=== PATIENT | female | born 1980 | race Caucasian/White ===

== ENCOUNTER → 2016-03-10 | Outpatient (CLI) | payer OTHER ==
[~2016-03-10] MED LIST: IBUP-232 PO; OXYC1TAB63 PO; PREN0.01 PO
[2016-03-10 13:23] LABS: HEMATOCRIT 30.5 % (35.0-46.0); REVIEW FLAG FINAL
== END ==
LOC: CLAB 11:47
PROVIDERS: ATTEND Obstetrics & Gynecology
DX: Z34.90 Encounter for supervision of normal pregnancy, unspecified, unspecified trimester (principal)
CPT/HCPCS: 36415; 82951; 85014; 85018; 86703; 87340

== ENCOUNTER 2016-05-18 05:27 | Inpatient (IN) | payer OTHER ==
[2016-05-18] VITALS (8 sets, daily range): BP systolic 101–124; BP diastolic 59–81; PULSE 68–101; RESP 16–20; TEMP 97.4–97.8; O2SAT 97–99
[~2016-05-18 05:27] MED LIST changes: -IBUP-232 PO; -OXYC1TAB63 PO
--- NOTE | 2016-05-18 06:39 | HHI.HP ---
HPI Chief Complaint Pain Date Seen: May 18, 2016 Travel History International Travel<30 Days: No Contact w/Intl Traveler<30Days: No Known Affected Area: No History of Present Illness HPI This patient is 35-year-old white female L0 at 38 weeks who presents with regular contractions with pain, no bleeding or ruptured membranes, positive the mucous plug passage area patient to followed by Dr. Fajardo the [facility] and she has a Morgan cerclage in due to incompetent cervix. The plan has been to have a planned in a week and leave the cerclage in case she wanted have future babies stitch already been placed. The heart rate tracing is reactive and she is rickey every 2-3 minutes Para: 1 : 3 History Past Medical History Narrative Medical Patient has history of a thyroid nodule, PCO S Obstetric History Obstetric History Patient had a loss at 22 weeks due to incompetent cervix, and the first trimester loss the yr after that. Past Surgical History Narrative Surgical Patient had a Morgan cerclage placed double stitch at 14 weeks Social History Alcohol Use: No Tobacco Use: No Substance Abuse: No Allergies-Medications (Allergen,Severity, Reaction): Coded Allergies: No Known Allergies (Unverified , 12/01/15) Home Meds Reported Medications Multivit/Min/Fol Ac/Iron/Pren ( Vit ( Plus)) Tab1 Tab PO DAILY 12/03/15 Review of Systems General / Constitutional: No: Fever, Weight Gain, Chills, Other Eyes: No: Diploplia, Blurred Vision, Visual changes, Pain, Photophobia HENT: No: Headaches, Vertigo, Lightheadedness Cardiovascular: No: Irregular Rhythm, Chest Pain or Discomfort, Palpitations, Tachycardia, Syncope, Varicosities, Edema, Cyanosis Respiratory: No: Cough, Short of Breath, Other Gastrointestinal: Abdominal Pain, No: Nausea, Vomiting, Diarrhea Genitourinary: No: Decreased Urinary Output, Oliguria Musculoskeletal: No: Limited ROM, Weakness, Cramping, Edema, Pain Skin: No Rash, No Itching, No Dryness, No Lumps, No Change in Pigmentation, No Change in Nails, No Alopecia, No Lesions Neurologic: No: Weakness, Dizziness, Syncope, Focal Abnormalities, Coordination Problem, Headache, Slurred Speech, Seizures Psychiatric: No: Depression, Suicidal Ideations, Homicidal Ideation Endocrine: No: Heat Intolerance, Cold Intolerance, Polydipsia, Polyuria, Other Physical Exam Narrative GENERAL: Well-nourished, well-developed patient. SKIN: Warm and dry. HEAD: Normocephalic and atraumatic. EYES: No scleral icterus. No injection or drainage. ENT: No nasal drainage noted. Mucous membranes pink. Airway patent. NECK: Supple, trachea midline. No JVD. CARDIOVASCULAR: Regular rate and rhythm without murmurs, gallops, or rubs. RESPIRATORY: Breath sounds equal bilaterally. No accessory muscle use. BREASTS: Bilateral exam showed no masses , no retractions, no nipple discharge. ABDOMEN/GI: Abdomen soft, non-tender, bowel sounds present, no rebound, no guarding Gravid to [-38] weeks size Fundal Height: [-38] GENITOURINARY: External Genitalia: intact and normal in appearance BUS glands: [-] Cervix: [-] Morgan cerclage palpable and appears intact, however the cervix does palpate to be effacing somewhat Dilatation: [Closed barely fingertip-] Effacement: [-] Approximately 50% it's hard to tell with the cerclage in place Station: [-3] Presentation: [-vtx] Membranes: [intact ] Uterine Contractions: [2- 3 min-] FHT's: Category: [-1] Baseline: [-144] Reactive: [yes-] Variability: [mod-] Decels: [none-] EXTREMITIES: No cyanosis or edema. BACK: Nontender without obvious deformity. No CVA tenderness. NEUROLOGICAL: Awake and alert. Motor and sensory grossly within normal limits. Five out of 5 muscle strength in all muscle groups. Normal speech. Data Data Labs Is GBS positive Assessment/Plan Assessment and Plan This patient is 35-year-old white female L0 at 38 weeks gestation with history of incompetent cervix now with Morgan cerclage in place a planned C- section next week. She presents with regular painful contractions every 2-3 minutes cervix palpates with the stitches intact to see the facing somewhat and only closed to fingertip, heart rate tracing is reactive. Plan to discuss patient with her physician Dr. Fajardo and see if he was just move her C- section up today at this point I think that would be appropriate Kun Berman II, MD May 18, 2016 06:39
[2016-05-18] MEDS ORDERED: LACTATED RINGER'S 1000 ML INJ 1,000 ML IV ONE ×2 (06:47→10:00)
[2016-05-18] MEDS ORDERED: LACTATED RINGER'S 1000 ML INJ 1,000 ML IV SCH ×2 (07:17→15:05)
[2016-05-18 07:39] LABS: AUTOMATED NEUTROPHIL # 14.3 TH/MM3 (1.8-7.7); BASOPHIL # 0.1 TH/MM3 (0-0.2); BASOPHIL % 0.4 % (0.0-2.0); EOSINOPHIL # 0.3 TH/MM3 (0-0.4); EOSINOPHIL % 1.8 % (0.0-4.0); HEMATOCRIT 31.9 % (35.0-46.0); LYMPH % 13.7 % (9.0-44.0); LYMPHOCYTE # 2.5 TH/MM3 (1.0-4.8); MEAN CELL VOLUME 84.5 FL (80.0-100.0); MEAN CORPUSCULAR HGB CONC 31.9 % (32.0-36.0); MONO % 5.3 % (0.0-8.0); NEUT % 78.8 % (16.0-70.0); PLATELET COUNT 374 TH/MM3 (150-450); RED BLOOD COUNT 3.78 MIL/MM3 (4.00-5.30); RED CELL DISTRIBUTION WIDTH 14.7 % (11.6-17.2); WHITE BLOOD COUNT 18.2 TH/MM3 (4.0-11.0)
[2016-05-18 07:43] LABS: HEMO FLAGS AUTO DIFF
[2016-05-18 07:53] LABS: BACTERIA, URINE FEW /hpf; BLOOD, URINE NEG (NEG); COMMENT (UR) CULTURE INDICATED; CULTURE IF INDICATED CULTURE INDICATED; GLUCOSE,URINE NEG (NEG); KETONE, URINE NEG (NEG); MUCUS URINE FEW /lpf (OCC); NITRITE,URINE NEG (NEG); SQUAMOUS EPITHELIAL CELL URINE 9 /hpf (0-5); URINE COLOR YELLOW (YELLW/STRAW)
[2016-05-18] MEDS ORDERED: ceFAZolin 2 GM PREMIX 50 ML IV SCH (08:00)
[2016-05-18 08:18] LABS: ALKALINE PHOSPHATASE 132 U/L (45-117); TOTAL BILIRUBIN ADULT 0.2 MG/DL (0.2-1.0)
[2016-05-18 08:19] LABS: BANDS 11 % (0-6); EOSINOPHILS 2 % (0-4); NEUTROPHIL # MANUAL DIFF 14.7 TH/MM3 (1.8-7.7); POLYS (SEG NEUTROPHILS) 70 % (16-70); WBC DIFF SAMPLE 100
[2016-05-18 08:20] LABS: PLATELET ESTIMATE SMEAR NORMAL (NORMAL); PLATELET MORPHOLOGY NORMAL (NORMAL); SCAN/DIFF FINAL DIFF MANUAL
[2016-05-18] MEDS ORDERED: MORPHINE SULFATE PF 5 MG/10 ML VIAL ONE (08:23)
[2016-05-18] MEDS ORDERED: OXYTOCIN 10 UNIT/ML AMP ONE (08:23)
[2016-05-18] MEDS ORDERED: ONDANSETRON HCL 4 MG/2 ML VIAL ONE (08:23)
[2016-05-18] MEDS ORDERED: CITRIC ACID-SODIUM CITRATE LIQ 30 ML UDC PO SCH (08:30)
[2016-05-18 08:52] LABS: ALT (GPT) 12 U/L (10-53); ANION GAP 10 MEQ/L (5-15); AST (GOT) 16 U/L (15-37); BICARBONATE 22.2 MEQ/L (21.0-32.0); BLOOD UREA NITROGEN 9 MG/DL (7-18); CHLORIDE 106 MEQ/L (98-107); GLOMERULAR FILTRATION RATE 104 ML/MIN (>89); POTASSIUM 4.3 MEQ/L (3.5-5.1); SODIUM (NA) 138 MEQ/L (136-145)
[2016-05-18] MEDS ORDERED: ePHEDrine/NS 25 MG/5 ML SYR IV ONE (10:00)
--- NOTE | 2016-05-18 10:09 | PD.OB.DELI ---
Procedure Note Section Procedure Performed by Ajit Fajardo Procedure: Primary Low Transverse Sec (History of cervical cerclage, intact) Indication for delivery: Other (cervical cerclage intact) Informed consent obtained: For anesthesia, For procedure Confirmed correct: Patient, Procedure, Site, Time-out taken Anesthesia: Spinal Medication prior to procedure: As documented in eMAR Monitoring during procedure: Blood pressure monitoring, improvement nurse, doppler Urinary catheter: Inserted using sterile technique, To dependent drainage Sterile preparation: Duraprep Position: Supine with wedge to right side, Supine with safety belt applied Operative Features Skin Incision: Pfannenstiel Uterine Incision: Low transverse w/knife / scissors Membranes Ruptured: Artificially Presentation: Occiput anterior Delivery of infant: Assisted (vacuum x1 pull) : Female One Minute : 8 Five Minute : 9 Weight: 7# 14oz Status of : Viable Placenta delivered: Intact Medications: Antibiotics, Oxytocin Estimated blood loss: 650 Procedure tolerated: Well Maternal Condition: Stable Condition: Stable Ajit Fajardo MD May 18, 2016 10:09
[2016-05-18] MEDS ORDERED: SODIUM CHLORIDE 0.9% FLUSH 5 ML FLUSH IV PRN (10:15)
[2016-05-18] MEDS ORDERED: ONDANSETRON HCL 4 MG/2 ML VIAL IV PUSH PRN (10:15)
[2016-05-18] MEDS ORDERED: OXYTOCIN 30 UNITS-500ML PREMIX 500 ML IV ONE (10:15)
[2016-05-18] MEDS ORDERED: KETOROLAC TROMETHAMINE 60 MG/2 ML (IM) VIAL IM PRN (10:15)
[2016-05-18] MEDS ORDERED: SIMETHICONE 80 MG CHEWABLE TAB PO PRN (10:15)
[2016-05-18] MEDS ORDERED: ACETAMINOPHEN 1000 MG/100 ML VIAL IV ONE ×2 (10:43→11:00)
[2016-05-18] MEDS ORDERED: OXYTOCIN 30 UNITS-500ML PREMIX 500 ML ONE (10:43)
[2016-05-18] MEDS ORDERED: SODIUM CHLORIDE 0.9% FLUSH 5 ML FLUSH IV SCH (11:00)
[2016-05-18] MEDS: DOCUSATE SODIUM 50 MG/SENNA 8.6 MG TAB PO PRN (16:51)
[2016-05-18] MEDS: IBUPROFEN 600 MG TAB PO PRN (16:51)
[2016-05-18] MEDS: oxyCODONE/ACETAMINOPHEN 5 MG/325 MG TAB PO PRN (16:52)
[2016-05-18] MEDS ORDERED: OXYTOCIN 30 UNITS-500ML PREMIX 500 ML IV PRN (20:15)
--- NOTE | 2016-05-19 07:32 | HHI.OB ---
Subjective Post Operative Day: 1 Remarks POD#1; doing well Objective Vitals/I&O Vital Signs Date Time Temp Pulse Resp B/P Pulse Ox O2 Delivery O2 Flow Rate FiO2 05/18/16 19:53 97.4 68 18 103/64 05/18/16 15:40 97.4 70 17 103/66 05/18/16 11:45 97.8 72 16 101/59 05/18/16 11:00 97.6 05/18/16 10:54 78 20 112/77 97 05/18/16 10:36 87 20 124/81 97 05/18/16 10:24 85 118/74 05/18/16 10:24 20 98 05/18/16 10:15 97.5 101 20 120/75 99 Result Diagram: 05/18/1671905/18/16719 Objective Remarks GENERAL: Well-nourished, well-developed patient. CARDIOVASCULAR: Regular rate and rhythm without murmurs, gallops, or rubs. RESPIRATORY: Breath sounds equal bilaterally. No accessory muscle use. ABDOMEN/GI: Abdomen soft, non-tender, bowel sounds present. Incision: Clean, dry and intact. Fundus: Firm, non-tender at umbilicus. GENITOURINARY: Light to moderate bleeding. EXTREMITIES: No cyanosis or edema, non-tender, without signs of DVT. Medications and IVs Current Medications Medications (Trade) Dose Ordered Sig/Elisa Route Start Time Stop Time Status Last Admin (Lr 1000 ml Inj) 1,000 ml @ 100 mls/hr Q10H IV 05/18/16 15:05 05/19/16 11:04 05/18/16 22:36 (NS Flush) 2 ml BID IV 05/18/16 11:00 (NS Flush) 2 ml UNSCH PRN IV 05/18/16 10:15 (Mylicon Chew) 80 mg QID PRN PO 05/18/16 10:15 (Motrin) 600 mg Q6H PRN PO 05/18/16 10:15 05/18/16 16:51 (Toradol Inj) 30 mg Q6H PRN IM 05/18/16 10:15 05/19/16 10:14 (Percocet 5-325 Mg) 1 tab Q4H PRN PO 05/18/16 10:15 (Percocet 5-325 Mg) 2 tab Q4H PRN PO 05/18/16 10:15 05/18/16 16:52 (Birdie-Colace) 2 tab Q12H PRN PO 05/18/16 10:15 05/18/16 16:51 (M-M-R Ii Inj) 0.5 ml ONCE ONCE SQ 05/19/16 16:00 05/19/16 16:01 (Boostrix Inj) 0.5 ml ONCE ONCE IM 05/19/16 16:00 05/19/16 16:01 (Zofran Inj) 4 mg Q6H PRN IV PUSH 05/18/16 10:15 05/18/16 18:37 Assessment/Plan Assessment and Plan POD#1; Stable Discharge Planning Does not meet criteria Ajit Fajardo MD May 19, 2016 07:31
[2016-05-19] MEDS ORDERED: IBUP-232 PO (07:33)
[2016-05-19] MEDS ORDERED: OXYC1TAB63 PO (07:33)
--- NOTE | 2016-05-19 07:34 | HHI.DS ---
Admission Date May 18, 2016 at 06:47 Admitting Diagnosis Diagnosis: : Primary Reason: Cervical cerlage inplace : Female Brief History This patient is 35-year-old white female L0 at 38 weeks who presents with regular contractions with pain, no bleeding or ruptured membranes, positive the mucous plug passage area patient to followed by Dr. Fajardo the [facility] and she has a Morgan cerclage in due to incompetent cervix. The plan has been to have a planned in a week and leave the cerclage in case she wanted have future babies stitch already been placed. The heart rate tracing is reactive and she is rickey every 2-3 minutes Pt Condition on Discharge: Good Discharge Disposition: Discharge Home Discharge Instructions Diet Instructions: As Tolerated, No Restrictions Activities You Can Perform: Shower Only-No Bath Activities to Avoid: Prolonged Standing, Strenuous Activity, Driving, Sexual Activity Ajit Fajardo MD May 19, 2016 07:34
[2016-05-19 08:00] VITALS: BP 127/81; PULSE 74; RESP 18; TEMP 98.7
--- NOTE | 2016-05-19 09:15 | MP ---
cc: AJIT ROBBINS DATE OF SURGERY 05/18/2016 PREOPERATIVE DIAGNOSIS Term anterior , history of cervical incompetence, delivery cervical cerclage in place PROCEDURE Primary low transverse section delivery of viable female . POSTOPERATIVE DIAGNOSIS Term anterior , history of cervical incompetence, delivery cervical cerclage in place SURGEON Aijt Robbins MD ANESTHESIA Spinal ESTIMATED BLOOD LOSS 650 cc DRAINS Maya to gravity OPERATIVE FINDINGS Female infant weighing 7 pounds 14 ounces, 's were 8 at one minute and 9 at five. Vertex presentation. Clear fluid. Three-vessel cord, intact placenta. ANTIBIOTICS The patient received Ancef 2 grams prophylactically. INDICATIONS FOR PROCEDURE Patient with a history of incompetent cervix with loss of a prior at 23 weeks. The patient had a cervical cerclage placed during this and elected to keep it intact scheduling a primary section for delivery. The patient presented in active labor stable, consented for plan of primary section. PROCEDURE The patient received antibiotics appropriately. She underwent spinal anesthetic without complication. She was prepped and draped. She had sequential placed on lower extremities for VTE prophylaxis. She was secured to the operating table with a belt and she was prepped and draped. Maya catheter was inserted by sterile technique. A time-out was conducted agreed by all present in the room. The patient was then draped. Excellent pain control was noted throughout. A Pfannenstiel incision was made just above the pubic symphysis, carried through the subcutaneous layer to the fascia. The fascia was identified, cleaned and scored laterally dissecting it away from the rectus muscle. The rectus muscle was easily identified in the midline and . The peritoneum was then opened sharply without difficulty, extended to the dome of the bladder and then the bladder blade was placed over the pubic symphysis. A transverse incision was made in the lower uterine segment opening the peritoneum first and then a transverse incision with clear fluid. The was delivered via a vacuum extractor by one simple pull. No nuchal cord entanglement. Delivery was accomplished in total. Good tone and cry were noted upon delivery. The cord was doubly clamped and cut and the infant was taken to the isolette by the nursery staff present. Cord samples obtained for cord blood typing. Placenta was removed intact with trailing membranes. The uterus was explored. No retained tissue. Hemostasis was controlled. The uterus was examined. Adnexa were normal. Closure of the lower uterine segment was made with a double layer. The first layer was a running locking suture of 0 Monocryl followed by a second imbricating suture of 0 Monocryl with good result. Examination of the closure was intact. There is no hematoma. A full count was made and correct. The peritoneum was then closed with a running suture of 2-0 Monocryl. Muscle bellies were reapproximated with interrupted mattress suture of 2-0 Monocryl. The fascia was then closed with 0 Vicryl in a simple running fashion with good result. The subcutaneous layer was examined and irrigated. No active bleeding was noted. A subcutaneous suture was placed using a 2-0 Monocryl and then luan used to reapproximate the skin edge. A Primapore dressing was applied. Final count was correct. The patient was stable. The infant was doing well in the regular nursery. MD FARHEEN Stark/INGRID /10:13 AM /8:58 AM
[2016-05-19] MEDS: IBUPROFEN 600 MG TAB PO PRN ×2 (12:23→19:53)
[2016-05-19] MEDS: oxyCODONE/ACETAMINOPHEN 5 MG/325 MG TAB PO PRN ×2 (12:23→21:40)
[2016-05-19 15:44] VITALS: BP 109/62; PULSE 87; RESP 18; TEMP 97.5
[2016-05-19] MEDS ORDERED: DIPHTH/TETANUS/ACEL PERTUSSIS (BOOSTER) 0.5 ML VIAL/PFS IM ONE (16:00)
[2016-05-19] MEDS ORDERED: MEASLES, MUMPS, RUBELLA VACCINE 0.5 ML VIAL SQ ONE (16:00)
[2016-05-19] MEDS: DOCUSATE SODIUM 50 MG/SENNA 8.6 MG TAB PO PRN (19:53)
[2016-05-19 20:00] VITALS: BP 113/68; PULSE 96; RESP 18; TEMP 98
[2016-05-20] MEDS: oxyCODONE/ACETAMINOPHEN 5 MG/325 MG TAB PO PRN ×3 (01:41→20:32)
[2016-05-20 08:00] VITALS: BP 121/80; PULSE 74; RESP 20; TEMP 97.6
--- NOTE | 2016-05-20 08:26 | HHI.OB ---
Subjective Post Operative Day: 2 Remarks doing well Objective Vitals/I&O Vital Signs Date Time Temp Pulse Resp B/P Pulse Ox O2 Delivery O2 Flow Rate FiO2 05/19/16 20:00 98.0 96 18 113/68 05/19/16 15:44 97.5 87 18 109/62 Result Diagram: 05/18/16 0720 05/18/16 0720 Objective Remarks GENERAL: Well-nourished, well-developed patient. CARDIOVASCULAR: Regular rate and rhythm without murmurs, gallops, or rubs. RESPIRATORY: Breath sounds equal bilaterally. No accessory muscle use. ABDOMEN/GI: Abdomen soft, non-tender, bowel sounds present. Incision: Clean, dry and intact. Fundus: Firm, non-tender at umbilicus. GENITOURINARY: Light to moderate bleeding. EXTREMITIES: No cyanosis or edema, non-tender, without signs of DVT. Medications and IVs Current Medications Medications (Trade) Dose Ordered Sig/Elisa Route Start Time Stop Time Status Last Admin (NS Flush) 2 ml BID IV 05/18/16 11:00 (NS Flush) 2 ml UNSCH PRN IV 05/18/16 10:15 (Mylicon Chew) 80 mg QID PRN PO 05/18/16 10:15 (Motrin) 600 mg Q6H PRN PO 05/18/16 10:15 05/19/16 19:53 (Percocet 5-325 Mg) 1 tab Q4H PRN PO 05/18/16 10:15 05/19/16 12:23 (Percocet 5-325 Mg) 2 tab Q4H PRN PO 05/18/16 10:15 05/20/16 01:41 (Birdie-Colace) 2 tab Q12H PRN PO 05/18/16 10:15 05/19/16 19:53 (Zofran Inj) 4 mg Q6H PRN IV PUSH 05/18/16 10:15 05/18/16 18:37 Assessment/Plan Assessment and Plan POD#2; Stable Discharge Planning Does not meet criteria Attending Attestation pt seen by Juany Cleveland MD May 20, 2016 08:26
[2016-05-20] MEDS: IBUPROFEN 600 MG TAB PO PRN ×2 (11:40→20:33)
[2016-05-20 19:50] VITALS: BP 123/77; PULSE 98; RESP 22; TEMP 98
[2016-05-21] MEDS: IBUPROFEN 600 MG TAB PO PRN (08:16)
[2016-05-21] MEDS: oxyCODONE/ACETAMINOPHEN 5 MG/325 MG TAB PO PRN (08:16)
[2016-05-21] MEDS: DOCUSATE SODIUM 50 MG/SENNA 8.6 MG TAB PO PRN (08:16)
--- NOTE | 2016-05-21 08:59 | HHI.OB ---
Subjective Post Operative Day: 3 Remarks doing well some pedal edema incision clean and dry and luan intact nursing well no concerns ready for discharge Objective Vitals/I&O Vital Signs Date Time Temp Pulse Resp B/P Pulse Ox O2 Delivery O2 Flow Rate FiO2 05/20/16 19:50 98.0 98 22 123/77 Result Diagram: 05/18/16 0720 05/18/16 0720 Objective Remarks GENERAL: Well-nourished, well-developed patient. CARDIOVASCULAR: Regular rate and rhythm without murmurs, gallops, or rubs. RESPIRATORY: Breath sounds equal bilaterally. No accessory muscle use. ABDOMEN/GI: Abdomen soft, non-tender, bowel sounds present. Incision: Clean, dry and intact. Fundus: Firm, non-tender at umbilicus. GENITOURINARY: Light to moderate bleeding. EXTREMITIES: No cyanosis or edema, non-tender, without signs of DVT. Medications and IVs Current Medications Medications (Trade) Dose Ordered Sig/Elisa Route Start Time Stop Time Status Last Admin (NS Flush) 2 ml BID IV 05/18/16 11:00 (NS Flush) 2 ml UNSCH PRN IV 05/18/16 10:15 (Mylicon Chew) 80 mg QID PRN PO 05/18/16 10:15 05/20/16 20:33 (Motrin) 600 mg Q6H PRN PO 05/18/16 10:15 05/21/16 08:16 (Percocet 5-325 Mg) 1 tab Q4H PRN PO 05/18/16 10:15 05/21/16 08:16 (Percocet 5-325 Mg) 2 tab Q4H PRN PO 05/18/16 10:15 05/20/16 20:32 (Birdie-Colace) 2 tab Q12H PRN PO 05/18/16 10:15 05/21/16 08:16 (Zofran Inj) 4 mg Q6H PRN IV PUSH 05/18/16 10:15 05/18/16 18:37 Assessment/Plan Assessment and Plan POD#3; Stable luan removed home today RTO 1 weeks counseled Discharge Planning Does not meet criteria Margie Palacio MD May 21, 2016 08:59
[2016-05-21 09:00] VITALS: BP 130/86; PULSE 92; RESP 18; TEMP 98.2
--- NOTE | 2016-05-21 09:00 | HHI.DCPOC ---
Discharge Care Plan Report Symptoms to Your Doctor -Temperate above 100.5 degrees -Redness, of incision or excessive or foul smelling drainage -Unusual pain or calf pain -Increased vaginal bleeding -Painful or difficulty urinating -Feelings of extreme sadness or anxiety after 2 weeks Goals to Promote Your Health * To prevent worsening of your condition and complications * To maintain your health at the optimal level Directions to Meet Your Goals Take your medications as prescribed Follow your dietary instruction Follow activity as directed Ensure plenty of rest for recovery Drink fluids for hydration Keep your appointments as scheduled Take your immunizations and boosters as scheduled If your symptoms worsen call your PCP, if no PCP go to Urgent Care Center or Emergency Room Smoking is Dangerous to Your Health. Avoid second hand smoke Call the 24-hour crisis hotline for domestic abuse at Margie Palacio MD May 21, 2016 08:59
[2016-05-21 10:25] VITALS: RESP 16
== END 2016-05-21 11:52 | disposition home or self-care (01) | DRG 766 ==
LOC: HOBED 05:27 → H2EB 06:47 → H1EA 11:20
PROVIDERS: ADMIT Obstetrics & Gynecology; ATTEND Obstetrics & Gynecology
PROC: 10D00Z1 Extraction of Products of Conception, Low, Open Approach (ICD-10-PCS; principal; 2016-05-18)
DX: O34.33 Maternal care for cervical incompetence, third trimester (principal); E04.1 Nontoxic single thyroid nodule; Z37.0 Single live birth; Z3A.38 38 weeks gestation of pregnancy
CPT/HCPCS: 80053; 81001; 84443; 85007; 85027; 86850; 86900; 86901; 87086; 99285; J0131; J0690; J2274; J2405; J2590; J7120